=== PATIENT | male | born 1990 | race Hispanic/Latino ===

== ENCOUNTER 2022-02-07 04:55 | Emergency (ER) | payer OTHER, SELFPAY ==
[2022-02-07] MEDS ORDERED: Bupivacaine 0.25% 10 ML VIAL ONE (05:40)
[2022-02-07] MEDS ORDERED: Boostrix 0.5 ML (Tdap) VIAL (>/=7 yrs of age) ONE (05:40)
[2022-02-07] MEDS ORDERED: Lidocaine 1% MPF 2 ML VIAL ONE (05:40)
[2022-02-07] MEDS ORDERED: Bacitracin 1 PK ONE (06:25)
== END 2022-02-07 06:30 | disposition home or self-care (01) ==
LOC: ERS 04:55
DX: S61.216A Laceration without foreign body of right little finger without damage to nail, initial encounter (principal); F17.210 Nicotine dependence, cigarettes, uncomplicated; Z23 Encounter for immunization; W26.8XXA Contact with other sharp object(s), not elsewhere classified, initial encounter; Y92.89 Other specified places as the place of occurrence of the external cause; Y99.0 Civilian activity done for income or pay
CPT/HCPCS: 12001; 90471; 90715; S0020